=== PATIENT | female | born 1960 | race Asian ===

== ENCOUNTER 2025-04-16 06:15 | Day surgery (SDC) | payer OTHER ==
[2025-04-10 10:44] VITALS: BMI 21.2
[2025-04-16] MEDS ORDERED: VANCOMYCIN 1,000 MG VIAL (RESTRICTED TO ID ONLY) ONE ×2 (07:18→07:47)
[2025-04-16] MEDS ORDERED: ceFAZolin SODIUM 1 GM VIAL ONE ×2 (07:18→08:32)
[2025-04-16] MEDS ORDERED: MIDAZOLAM HCL 2 MG/2 ML SINGLE DOSE VIAL ONE (07:19)
[2025-04-16] MEDS ORDERED: BUPIVACAINE HCL/EPINEPHRINE/PF 30 ML VIAL IJ ONE (07:19)
[2025-04-16] MEDS ORDERED: GENTAMICIN SO4 80 MG/2 ML VIAL ONE (07:19)
[2025-04-16] MEDS ORDERED: LIDOCAINE HCL/PF 2% SDV 5ML VIAL ONE (07:20)
[2025-04-16] MEDS ORDERED: PROPOFOL 20 ML ONE (07:20)
[2025-04-16] MEDS ORDERED: oxyCODONE HCL 5 MG TABLET PO PRN ×2 (07:44)
[2025-04-16] MEDS ORDERED: PROMETHAZINE HCL 25 MG/1 ML VIAL IVPB PRN (07:44)
[2025-04-16] MEDS ORDERED: LACTATED RINGERS SOLUTION 1,000 ML IV SCH (07:45)
[2025-04-16] MEDS ORDERED: ACETAMINOPHEN INJECTION 100 ML ONE (07:48)
[2025-04-16] MEDS ORDERED: DEXAMETHASONE SOD PHOSPHATE 4 MG/1 ML VIAL ONE (08:32)
[2025-04-16] MEDS ORDERED: ONDANSETRON 4 MG/2 ML VIAL ONE ×2 (09:52→10:29)
[2025-04-16] MEDS ORDERED: KETOROLAC TROMETHAMINE 30 MG/1 ML VIAL ONE (10:24)
[2025-04-16] MEDS: ONDANSETRON 4 MG/2 ML VIAL IVPUSH PRN (10:25)
[2025-04-16] MEDS ORDERED: FENTANYL CITRATE/PF 50 MCG/ML VIAL ONE ×2 (10:29→10:48)
[2025-04-16] MEDS ORDERED: PROMETHAZINE HCL 25 MG/1 ML VIAL ONE (12:07)
[2025-04-16 18:41] VITALS: RESP 17
[2025-04-16 18:53] VITALS: BP 124/77; PULSE 64; TEMP 99
== END 2025-04-16 14:00 | disposition home or self-care (01) ==
LOC: FASU 06:15
PROVIDERS: ATTEND Plastic Surgery
PROC: 0HPT0JZ Removal of Synthetic Substitute from Right Breast, Open Approach (ICD-10-PCS; 2025-04-16)
PROC: 0HRV0JZ Replacement of Bilateral Breast with Synthetic Substitute, Open Approach (ICD-10-PCS; 2025-04-16)
PROC: 0HPU0JZ Removal of Synthetic Substitute from Left Breast, Open Approach (ICD-10-PCS; principal; 2025-04-16 08:47)
DX: T85.44XA Capsular contracture of breast implant, initial encounter (principal); Y82.8 Other medical devices associated with adverse incidents; Y92.9 Unspecified place or not applicable; Y83.8 Other surgical procedures as the cause of abnormal reaction of the patient, or of later complication, without mention of misadventure at the time of the procedure
CPT/HCPCS: 19342; 19371; L8600; 88300-TC; 88304-TC; 88342-TC; 94760; J0131